=== PATIENT | male | born 1955 ===

== ENCOUNTER → 2017-08-11 07:02 | Outpatient (CLI) | payer OTHER | END | disposition home or self-care (01) | LOC: LAB 07:02 | DX: E55.9 Vitamin D deficiency, unspecified (principal); E78.5 Hyperlipidemia, unspecified; Z13.9 Encounter for screening, unspecified; R73.9 Hyperglycemia, unspecified; Z13.29 Encounter for screening for other suspected endocrine disorder; R94.6 Abnormal results of thyroid function studies ==

== ENCOUNTER 2017-11-19 06:44 | Outpatient (CLI) | payer OTHER | END 2017-11-19 07:14 | disposition home or self-care (01) | LOC: LAB 06:44 | DX: E11.65 Type 2 diabetes mellitus with hyperglycemia (principal); E03.9 Hypothyroidism, unspecified ==

== ENCOUNTER → 2018-02-24 06:50 | Outpatient (CLI) | payer OTHER | END | disposition home or self-care (01) | LOC: LAB 06:50 | DX: E55.9 Vitamin D deficiency, unspecified (principal); E78.4 Other hyperlipidemia; R73.9 Hyperglycemia, unspecified; Z13.29 Encounter for screening for other suspected endocrine disorder; R94.6 Abnormal results of thyroid function studies ==

== ENCOUNTER 2018-05-12 07:18 | Outpatient (CLI) | payer OTHER | END 2018-05-12 07:26 | disposition home or self-care (01) | LOC: LAB 07:18 | DX: E55.9 Vitamin D deficiency, unspecified (principal); E78.49 Other hyperlipidemia; Z13.9 Encounter for screening, unspecified; R73.9 Hyperglycemia, unspecified; Z13.29 Encounter for screening for other suspected endocrine disorder; R94.6 Abnormal results of thyroid function studies ==

== ENCOUNTER 2018-07-30 07:46 | Outpatient (CLI) | payer OTHER | END 2018-07-30 07:58 | disposition home or self-care (01) | LOC: LAB 07:46 | DX: E55.9 Vitamin D deficiency, unspecified (principal); E78.49 Other hyperlipidemia; Z13.9 Encounter for screening, unspecified; R73.09 Other abnormal glucose; Z13.29 Encounter for screening for other suspected endocrine disorder; R94.6 Abnormal results of thyroid function studies ==

== ENCOUNTER → 2018-11-29 06:48 | Outpatient (CLI) | payer OTHER | END | disposition home or self-care (01) | LOC: LAB 06:48 | DX: E78.49 Other hyperlipidemia (principal); E55.9 Vitamin D deficiency, unspecified; Z13.89 Encounter for screening for other disorder; R73.09 Other abnormal glucose; Z13.29 Encounter for screening for other suspected endocrine disorder; R94.6 Abnormal results of thyroid function studies ==

== ENCOUNTER 2019-03-21 07:13 | Outpatient (CLI) | payer OTHER | END 2019-03-21 07:30 | disposition home or self-care (01) | LOC: LAB 07:13 | DX: R97.20 Elevated prostate specific antigen [PSA] (principal); E55.9 Vitamin D deficiency, unspecified; E78.49 Other hyperlipidemia; R73.9 Hyperglycemia, unspecified; Z13.89 Encounter for screening for other disorder; Z13.29 Encounter for screening for other suspected endocrine disorder; R94.6 Abnormal results of thyroid function studies ==

== ENCOUNTER 2019-06-29 06:59 | Outpatient (CLI) | payer OTHER | END 2019-06-29 09:03 | disposition home or self-care (01) | LOC: LAB 06:59 | DX: E55.9 Vitamin D deficiency, unspecified (principal); Z13.89 Encounter for screening for other disorder; Z13.228 Encounter for screening for other metabolic disorders; E11.65 Type 2 diabetes mellitus with hyperglycemia; R94.6 Abnormal results of thyroid function studies ==